=== PATIENT | female | born 1975 | race Caucasian/White ===

== ENCOUNTER → 2017-01-02 | Outpatient (CLI) | payer BC ==
--- NOTE | 2017-01-02 12:39 | KCIC ---
Three-view left ankle dated 01/02/2017. No comparison available. CLINICAL INDICATION: Pain and swelling after fall. FINDINGS: 3 views left ankle show normal bony alignment. No displaced fracture. Diffuse soft tissue swelling. No acute osseous or articular abnormality. Talar dome is intact. IMPRESSION: Soft tissue swelling with no evidence of underlying acute bony abnormality. Electronically signed by: Son Blake MD (01/02/2017 12:36 PM)
== END | disposition home or self-care (01) ==
LOC: KCIC 12:03
PROVIDERS: ATTEND Chiropractor
DX: M25.572 Pain in left ankle and joints of left foot (principal)
CPT/HCPCS: 73610